=== PATIENT | male | born 1990 | race Caucasian/White ===

== ENCOUNTER 2018-12-14 01:45 | Inpatient (IN) | payer SELFPAY ==
[~2018-12-14] VITALS: Ht 170.2 cm; Wt 72.6 kg
[2018-12-14 01:50] VITALS: BP 110/59
--- NOTE | 2018-12-14 01:50 | NUR ---
TO BED # 08 VIA WHEEL CHAIR
--- NOTE | 2018-12-14 02:05 | NUR ---
28 YO M BIB SELF AND GIRLFRIEND PRESENTS TO ED C/O 02/08 SEVERE LRQ ABD PAIN THAT IS CONSTANT, NON-RADIATING X 5 HOURS. PT ALSO C/O N/V; VOMITING X 2 BEFORE ARRIVAL. DENIES DIARRHEA. -- PT AWAKE, ALERT. APPEARS TO BE IN SEVERE PAIN; GRIMACING, MOANING, GUARDING, RESTLESS. ANSWERS QUESTIONS APPROPRIATELY. -- SKIN PALE,WARM, DRY. BREATHING EVEN, UNLABORED. -- ABD TENDERNESS NOTED. [facility]-- DENIES RX-- DENIES Addendum: 12/14/[address] [facility] REBOUND TENDERNESS NOTED TO LRQ.
[2018-12-14] MEDS ORDERED: NACL 0.9% 1,000 ML IV SCH ×2 (02:14→03:31)
[2018-12-14] MEDS ORDERED: ONDANSETRON 4 MG/2 ML VIAL IVP ONE (02:15)
[2018-12-14] MEDS ORDERED: MORPHINE SULFATE 4 MG/ML SYR IVP ONE (02:15)
[2018-12-14 02:34] LABS: BASOPHILS % (AUTO) 0.3 % (0.0-2.0); EOSINOPHILS % (AUTO) 0.5 % (0.0-4.0); HEMATOCRIT 39.5 % (36-52); HEMOGLOBIN 13.6 g/dL (12.0-18.0); LYMPHOCYTES # (AUTO) 1.8 K/uL (2.0-11.5); LYMPHOCYTES % (AUTO) 19.3 % (20.5-51.1); MEAN CORPUSCULAR HEMOGLOBIN 32 pg (27-31); MEAN CORPUSCULAR HGB CONC 35 g/dL (33-37); MEAN CORPUSCULAR VOLUME 92.8 fL (80-94); MONOCYTES # (AUTO) 0.7 K/uL (0.8-1.0); NEUTROPHILS # (AUTO) 6.8 K/uL (1.8-7.7); NEUTROPHILS % (AUTO) 72.9 % (42.2-75.2); PLATELET COUNT (AUTO) 210 K/uL (140-450); RED BLOOD CELL COUNT(AUTO) 4.26 MIL/uL (4.20-6.10); RED CELL DISTRIBUTION WIDTH 14.2 % (11.6-13.7); WHITE BLOOD COUNT (AUTO) 9.3 K/uL (4.8-10.8)
--- NOTE | 2018-12-14 02:46 | NUR ---
PT TAKEN TO CT VIA RERIKA.
[2018-12-14 02:51] LABS: ANION GAP 15.1 (8-16); CREATININE 1.1 mg/dL (0.7-1.3); POTASSIUM 3.1 mmol/L (3.5-5.1)
[2018-12-14 02:56] LABS: ALBUMIN 4.3 g/dL (3.4-5.0); TOTAL BILIRUBIN 0.8 mg/dL (0.0-1.0)
--- NOTE | 2018-12-14 03:02 | NUR ---
PT RETURN FROM CT
[2018-12-14] MEDS ORDERED: PIPERACILLIN/TAZOBACTAM 3.375 GM in DEXTROSE 5% 50 ML IV ONE (03:30)
[2018-12-14] MEDS ORDERED: MORPHINE SULFATE 2 MG/ML SYR IVP PRN (03:35)
[2018-12-14] MEDS ORDERED: ACETAMINOPHEN 325 MG TAB PO PRN (03:35)
[2018-12-14] MEDS ORDERED: ONDANSETRON 4 MG/2 ML VIAL IM/IVP PRN (03:35)
[2018-12-14] MEDS ORDERED: LORazepam 2 MG/ML VIAL IM/IVP PRN (03:35)
[2018-12-14] MEDS ORDERED: DOCUSATE SODIUM 100 MG GELCAP PO PRN (03:35)
[2018-12-14] MEDS ORDERED: FAMOTIDINE 20 MG/2 ML VIAL IV PRN (03:35)
[2018-12-14] MEDS ORDERED: PIPERACILLIN/TAZOBACTAM 3.375 GM VIAL IV ONE (03:50)
[2018-12-14 03:55] LABS: PROTHROMBIN TIME 11.2 secs (10.8-13.4)
--- NOTE | 2018-12-14 04:15 | NUR ---
Patient will be admitted to care of Dr. Hager. Admited to TELE. Will go to room 125A. Belongings list completed. Report to ISABELLA Gallo.
[2018-12-14] MEDS ORDERED: KCL 20 MEQ/WATER INJ PREMIX 200 ML IV SCH (04:30)
[2018-12-14 04:32] LABS: CHOL/HDL RATIO 2.2 (1-4.5); FREE T4 (FREE THYROXINE) 1.12 ng/dL (0.76-1.46); MAGNESIUM 1.4 mg/dL (1.8-2.4); PHOSPHORUS 1.2 mg/dL (2.5-4.9); THYROID STIMULATING HORMONE 1.63 uIU/mL (0.34-3.74)
--- NOTE | 2018-12-14 04:35 | NUR ---
ADMITTED 28 YEARS MALE FROM ER VIA GURNEY ACCOMPANIED BY FAMILY MEMBER, CC: ABD. PAIN, N/V. DX: ACUTE APPENDICITIS. ORIENTED TO ROOM AND UNIT ROUTINES. CALL LIGHT WITHIN REACH. VITALS SIGNS STABLE. SEE ADMISSION ASSESSMENT AND HISTORY.
[2018-12-14 04:55] VITALS: BP 130/68
[2018-12-14] MEDS ORDERED: DEXT 5% / NACL 0.9% 500 ML IV SCH (05:00)
[2018-12-14] MEDS ORDERED: MAG SULF 2000 MG/WATER PREMIX 50 ML IV SCH ×2 (05:30→20:00)
--- NOTE | 2018-12-14 06:21 | NUR ---
ASLEEP NOTED. CALL LIGHT WITHIN REACH. NO COMPLAINS.
--- NOTE | 2018-12-14 07:00 | NUR ---
RECEIVED REPORT FROM TABLE SAW OPERATOR NURSE. PT AAOX4 IN BED, AT BEDSIDE. PT ON SENIOR ARCHITECT/DESIGN MANAGER, IV ON LT AC 20 GA RUNNING IVF PER ORDER. RESPIRATIONS EVEN AND UNLABORED ON RA. NO C/O PAIN AT THIS TIME. ABDOMEN SOFT, BS ACTIVE THROUGHOUT. REVIEWED POC WITH PT, PT VERBALIZED UNDERSTANDING.
[2018-12-14] MEDS ORDERED: MAG SULF 2000 MG/WATER PREMIX 100 ML IV ONE (07:10)
--- NOTE | 2018-12-14 07:20 | NUR ---
ENDORSED CARE AT BEDSIDE WITH CRISTOPHER MASON, PATIENT IN STABLE CONDITION.
[2018-12-14] MEDS ORDERED: KCL 20 MEQ/WATER INJ PREMIX 100 ML IV SCH (07:30)
[2018-12-14 08:00] VITALS: BP 105/50
[2018-12-14] MEDS ORDERED: HYDROmorphone 1 MG/ML AMP IVP SCH (08:10)
--- NOTE | 2018-12-14 08:14 | NUR ---
PATIENT HAS BEEN SCREENED AND CATEGORIZED LOW NUTRITION RISK. PATIENT WILL BE SEEN WITHIN 7 DAYS OF ADMISSION. 12/20/[address]
--- NOTE | 2018-12-14 08:30 | NUR ---
PT C/O PAIN TO IV SITE. PT NOTIFIED THAT IT IS D/T POTASSIUM, SLOWED RATE TO 30 ML/HR, PT TOLERATING WELL. PHYSICIAN AND PHARMACY NOTIFIED.
[2018-12-14] MEDS ORDERED: LACTOBACILLUS RHAMNOSUS GG 1 EACH CAP PO SCH (09:00)
[2018-12-14 09:17] LABS: BASOPHILS % (AUTO) 0.1 % (0.0-2.0); EOSINOPHILS % (AUTO) 0.1 % (0.0-4.0); HEMATOCRIT 40.5 % (36-52); HEMOGLOBIN 13.8 g/dL (12.0-18.0); LYMPHOCYTES # (AUTO) 0.3 K/uL (2.0-11.5); LYMPHOCYTES % (AUTO) 4.2 % (20.5-51.1); MEAN CORPUSCULAR HEMOGLOBIN 32 pg (27-31); MEAN CORPUSCULAR HGB CONC 34 g/dL (33-37); MEAN CORPUSCULAR VOLUME 93.8 fL (80-94); MONOCYTES # (AUTO) 0.3 K/uL (0.8-1.0); MONOCYTES % (AUTO) 3.8 % (1.7-9.3); NEUTROPHILS # (AUTO) 6.4 K/uL (1.8-7.7); NEUTROPHILS % (AUTO) 91.8 % (42.2-75.2); PLATELET COUNT (AUTO) 184 K/uL (140-450); RED BLOOD CELL COUNT(AUTO) 4.32 MIL/uL (4.20-6.10); RED CELL DISTRIBUTION WIDTH 14.3 % (11.6-13.7)
--- NOTE | 2018-12-14 09:37 | NUR ---
PT TEMPERATURE AT 100.1, NOTIFIED, GIVEN TYLENOL FOR FEVER. WILL REASSESS IN 1 HOUR.
--- NOTE | 2018-12-14 10:30 | NUR ---
ORAL TEMP CHECKED AT 98.2. PT HAS NO SIGNS OF FEVER AT THIS TIME.
[2018-12-14] MEDS: HYDROcodone/APAP 7.5/325 MG 1 TAB PO PRN (10:36)
--- NOTE | 2018-12-14 10:53 | NUR ---
USED [employer] SUTURE WINDER HAND, MAINTENANCE OF WAY SUPERVISOR CODY ROSS [id number]. REVIEWED POC WITH PT, PT UNDERSTANDS THAT DR. MCGHEE WILL SEE HIM LATER TODAY. EXPLAINED TO PT TO NOTIFY NURSE IF HE NEEDS ASSISTANCE GOING TO THE RESTROOM AND WITH POSITION CHANGES TO HELP ALLEVIATE PAIN. PT IS AWARE TO NOTIFY NURSE IF IV IS STARTING TO BURN AGAIN D/T POTASSIUM SO NURSE CAN SLOW DOWN THE RATE. ALL PT AND FAMILY QUESTIONS ANSWERED. Addendum: 12/14/18 at 1100 by Loly Medrano RN IV POTASSIUM RATE DECREASED TO 25 ML/HR D/T PT'S C/O PAIN TO IV SITE. WILL CONTINUE TO MONITOR.
[2018-12-14 12:00] VITALS: BP 104/58
[2018-12-14] MEDS ORDERED: SODIUM PHOSPHATE 15 MMOLE in NACL 0.9% 250 ML IV SCH (12:00)
--- NOTE | 2018-12-14 12:00 | NUR ---
PER DR. RO, START ZOSYN FIRST, THEN SODIUM PHOSPHATE AND POTASSIUM TO FOLLOW IN ORDER.
[2018-12-14] MEDS: PIPERACILLIN/TAZOBACTAM 3.375 GM in DEXTROSE 5% 50 ML IV SCH ×2 (12:01→21:37)
--- NOTE | 2018-12-14 14:55 | NUR ---
DR. RO AT BEDSIDE USING [employer] WAREHOUSE OPERATIONS ASSOCIATE TO EXPLAIN TO PT REGARDING PROCEDURE TO BE DONE. ALL QUESTIONS CLARIFIED.
[2018-12-14] MEDS ORDERED: POTASSIUM CHLORIDE 10 MEQ TABER PO SCH (15:00)
--- NOTE | 2018-12-14 15:33 | NUR ---
PT UPDATED AND AWARE OF PROCEDURE TO BE DONE BY DR. ELY.
[2018-12-14 16:00] VITALS: BP 102/61
--- NOTE | 2018-12-14 18:41 | NUR ---
DR. ELY AT BEDSIDE, USED [employer] ORACLE DEVELOPER, ALL QUESTIONS ANSWERED. ADMISSIONS MANAGER USAMA [id number]. PT VERBALIZES UNDERSTANDING.
--- NOTE | 2018-12-14 18:44 | NUR ---
PT TRANSFERRED TO OR VIA GURNEY FOR PROCEDURE. PT HAS NO SIGNS OF DISTRESS AT THIS TIME.
[2018-12-14] MEDS ORDERED: ROCURONIUM 50 MG/5 ML VIAL IV ONE (18:45)
[2018-12-14] MEDS ORDERED: SEVOFLURANE 250 ML BTL INH ONE (18:45)
[2018-12-14] MEDS ORDERED: ONDANSETRON 4 MG/2 ML VIAL ONE (18:45)
[2018-12-14] MEDS ORDERED: PROPOFOL 200 MG/20 ML VIAL IV ONE (18:45)
[2018-12-14] MEDS ORDERED: KETOROLAC 30 MG/ML VIAL ONE (18:45)
[2018-12-14] MEDS ORDERED: NEOSTIGMINE 1:1000 10 MG/10 ML VIAL ONE (18:45)
[2018-12-14] MEDS ORDERED: GLYCOPYRROLATE 0.2 MG/ML VIAL ONE (18:45)
[2018-12-14] MEDS ORDERED: DEXAMETHASONE 4 MG/ML VIAL ONE (18:45)
[2018-12-14] MEDS ORDERED: fentaNYL 0.05 MG/ML VIAL ONE (19:00)
[2018-12-14] MEDS ORDERED: MIDAZOLAM 2 MG/2 ML VIAL ONE (19:00)
[2018-12-14] MEDS ORDERED: MEPERIDINE 50 MG/ML SYR ONE (19:01)
[2018-12-14] MEDS ORDERED: BUPIVACAINE-MPF/EPI 0.25% 30 ML VIAL INJ ONE (19:04)
[2018-12-14] MEDS ORDERED: LACTATED RINGERS 1,000 ML IV SCH (19:12)
[2018-12-14] MEDS ORDERED: ONDANSETRON 4 MG/2 ML VIAL IVP PRN (19:15)
[2018-12-14] MEDS ORDERED: MEPERIDINE 25 MG/ML SYR IVP PRN (19:15)
[2018-12-14] MEDS ORDERED: HYDROmorphone 1 MG/ML AMP IVP PRN (19:15)
[2018-12-14] MEDS ORDERED: diphenhydrAMINE 50 MG/ML VIAL IVP PRN (19:15)
--- NOTE | 2018-12-14 19:25 | NUR ---
ENDORSED PT TO FLORIST SUPPLIES SALESPERSON NURSE FOR CONTINUITY OF CARE. PT IS CURRENTLY IN OR FOR PROCEDURE. ALL QUESTIONS ANSWERED.
--- NOTE | 2018-12-14 19:26 | NUR ---
RECEIVED VERBAL ENDORSEMENT FROM AM SHIFT RN, PT STILL AT OR FOR POSS. APPENDECTOMY.
--- NOTE | 2018-12-14 19:27 | NUR ---
KCL 2/2 BAG PER ENDORSEMENT, PER AM SHIFT NURSE DR. MUNGUIA Addendum: 12/14/18 at 2133 by Elicia Campos RN NO 2ND BAG RECEIVED IN THE ROOM/INIT PER ENDORSEMENT FROM PREVIOUS SHIFT, ALSO PER RN, AM DOCTOR AWARE THAT 2ND BAG WAS NOT GIVEN.
[2018-12-14 20:25] VITALS: BP 101/53
--- NOTE | 2018-12-14 21:24 | NUR ---
INFORMED VDR. CHERY THAT THE IV ANTIBIOTICS OF 1800 WAS NOT GIVEN, HE SAID TO GIVE THE DOSE NOW, AND ADJUST THE OTHER DOSES EVERY 6 HRS. LIKEWISE ALSO INFORMED HIM THAT POTASSIUM CHLORIDE 0930 AM 2ND BAG WAS NOT GIVEN AM SHIFT,HE ORDERED TO TO RECHECK K LEVEL IN THE AM AND WILL ORDER ANOTHER BAG THEY SEE FIT
[2018-12-15] VITALS: BP 100/58
[2018-12-15] MEDS: PIPERACILLIN/TAZOBACTAM 3.375 GM in DEXTROSE 5% 50 ML IV SCH ×3 (01:01→12:25)
--- NOTE | 2018-12-15 02:00 | NUR ---
SLEEPING SUPINE, NO COMPLAINTS, FREQUENTS ROUNDS DONE
[2018-12-15 04:00] VITALS: BP 110/60
--- NOTE | 2018-12-15 04:00 | NUR ---
CHECKED ON WOUND, 3 INCISIONS W/ DERMABOND INTACT NO BLEEDING
[2018-12-15] MEDS ORDERED: DEXT 5% /NACL 0.9% 1,000 ML IV SCH (05:00)
--- NOTE | 2018-12-15 06:00 | NUR ---
PT AWAKE ALERT ORIENTED, PT IN STABLE CONDITION, NO COMPLAINTS OF PAIN
[2018-12-15 06:31] LABS: ANION GAP 7.9 (8-16); CARBON DIOXIDE 30.9 mmol/L (21-32); POTASSIUM 4.8 mmol/L (3.5-5.1)
[2018-12-15 06:51] LABS: MAGNESIUM 2.4 mg/dL (1.8-2.4); PHOSPHORUS 3.3 mg/dL (2.5-4.9)
[2018-12-15 06:54] LABS: HEMATOCRIT 38.7 % (36-52); HEMOGLOBIN 13.1 g/dL (12.0-18.0); LYMPHOCYTES # (AUTO) 0.5 K/uL (2.0-11.5); LYMPHOCYTES % (AUTO) 4.3 % (20.5-51.1); MEAN CORPUSCULAR HEMOGLOBIN 32 pg (27-31); MEAN CORPUSCULAR HGB CONC 34 g/dL (33-37); MEAN CORPUSCULAR VOLUME 95.1 fL (80-94); MONOCYTES # (AUTO) 0.3 K/uL (0.8-1.0); MONOCYTES % (AUTO) 2.5 % (1.7-9.3); NEUTROPHILS # (AUTO) 9.9 K/uL (1.8-7.7); NEUTROPHILS % (AUTO) 93.2 % (42.2-75.2); PLATELET COUNT (AUTO) 179 K/uL (140-450); RED BLOOD CELL COUNT(AUTO) 4.07 MIL/uL (4.20-6.10); RED CELL DISTRIBUTION WIDTH 14.9 % (11.6-13.7); WHITE BLOOD COUNT (AUTO) 10.6 K/uL (4.8-10.8)
--- NOTE | 2018-12-15 07:25 | NUR ---
RECEIVED BEDSIDE REPORT FROM SOCIAL AND POLITICAL STUDIES PROFESSOR NURSE. PT IS AWAKE AND ALERT, NO S/S OF ANY ACUTE DISTRESS OR SOB NOTED. PT IS ON ROOM AIR. SKIN INTACT, SMALL INCISIONAL SCARS NOTED ON THE ABD S/P LAP APPENDECTOMY, MIRIAN. IV SITE NOTED IN THE L AC 18 G, PATENT AND INTACT, INFUSING D5NS 100 ML/HR. CALL LIGHT IS WITHIN REACH, WILL CONTINUE TO MONITOR.
[2018-12-15 08:00] VITALS: BP 105/52
[2018-12-15] MEDS ORDERED: SIMETHICONE 80 MG TAB.CHEW PO SCH (08:00)
[2018-12-15] MEDS: HYDROcodone/APAP 7.5/325 MG 1 TAB PO PRN (08:10)
[2018-12-15] MEDS ORDERED: LACTOBACILLUS RHAMNOSUS GG 1 EACH CAP PO SCH (09:00)
[2018-12-15] MEDS ORDERED: HYDR-5122 PO (10:07)
[2018-12-15] MEDS ORDERED: DOCU-299 PO (10:09)
--- NOTE | 2018-12-15 13:30 | NUR ---
PT HAS DISCHARGED. DC INSTRUCTIONS AND PRESCRIPTIONS WERE PROVIDED. PT AND VERBALIZED UNDERSTANDING OF DC INSTRUCTIONS. IV SITE AND WRIST BAND REMOVED. PT LEFT WITH ALL HIS BELONGINGS IN STABLE CONDITION.
== END 2018-12-15 13:30 | disposition home or self-care (01) | DRG 340 ==
LOC: MED 01:45 → MMU 03:37
PROVIDERS: ADMIT General Practice; ATTEND General Practice
PROC: 0DTJ4ZZ Resection of Appendix, Percutaneous Endoscopic Approach (ICD-10-PCS; principal; 2018-12-14 18:30)
DX: K35.33 Acute appendicitis with perforation, localized peritonitis, and gangrene, with abscess (principal); E87.6 Hypokalemia; E83.42 Hypomagnesemia
CPT/HCPCS: 36415; 71045; 80048; 80053; 82150; 82374; 82948; 83036; 83605; 83690; 83735; 83880; 84100; 84439; 84443; 84484; 85025; 85610; 85730; 86886; 86900; 86901; 87081; 88304; 96361; 96374; 96375; 99285; J1100; J1170; J1885; J2175; J2250; J2270; J2405; J2543; J2704; J2710; J3010; J3475; J3480; J3490; J7030; J7060; Q0092